=== PATIENT | male | born 1995 | race Caucasian/White ===

== ENCOUNTER 2019-04-13 13:55 | Emergency (ER) | payer OTHER ==
[2019-04-13 14:10] VITALS: BP 100/54
--- NOTE | 2019-04-13 14:12 | UC ---
Skin Complaint HPI - HPI Summary HPI Summary: 24 yo male presents with right cheek scratch. He tells me that 3 days ago he was camping and somehow sustained a small abrasion to his right cheek. Since that time has had increased pain, redness, and swelling to the area. He went to [facility] today and was prescribed keflex for this, but they instructed him to come here after leaving their clinic. He is unsure why he is supposed to come here. He denies vision changes, eye pain, fever, chills. States his tetanus is up to date. - History of Current Complaint Chief Complaint: UCSkin Time Seen by Provider: 04/13/19 14:11 Stated Complaint: EYE IRRRITATION Hx Obtained From: Patient Onset/Duration: Gradual Onset Onset Severity: Mild Current Severity: Mild Pain Intensity: 1 Pain Scale Used: 0-10 Numeric - Allergy/Home Medications Allergies/Adverse Reactions: Allergies Allergy/AdvReac Type Severity Reaction Status Date / Time No Known Allergies Allergy Verified 04/13/19 14:04 Home Medications: Home Medications Escitalopram Oxalate [Lexapro 10 mg] 15 mg PO DAILY 04/13/19 [History Confirmed 04/13/19] PMH/Surg Hx/FS Hx/Imm Hx Psychological History: Anxiety, Depression - Surgical History Surgical History: None - Family History Known Family History: Positive: Non-Contributory - Social History Occupation: Student Lives: Dormitory/Roommates Alcohol Use: Occasionally Substance Use Type: Cocaine, Marijuana Substance Use Comment - Amount & Last Used: ocassional Smoking Status (MU): Smoker, Current Status Unknown Type: eCigarettes Amount Used/How Often: 1 juul pod every 3-4 days Review of Systems All Other Systems Reviewed And Are Negative: No Constitutional: Positive: Negative Skin: Positive: Other - Abrasion right cheek Eyes: Positive: Negative ENT: Positive: Negative Respiratory: Positive: Negative Cardiovascular: Positive: Negative Neurovascular: Positive: Negative Neurological: Positive: Negative Psychological: Positive: Negative Physical Exam - Summary Physical Exam Summary: GENERAL: NAD. WDWN. No pain distress. SKIN: Right cheek: 1.0cm linear superficial abrasion with 1.5cm of surrounding mild erythema and edema. No drainage. EYES: No erythema or injection. No drainage. NECK: Supple. Nontender. No lymphadenopathy. CHEST: No accessory muscle use. Breathing comfortably and in no distress. CV: Pulses intact. Cap refill <2seconds NEURO: Alert. PSYCH: Age appropriate behavior. Triage Information Reviewed: Yes Vital Signs: Initial Vital Signs Temp 98.6 F 04/13/19 14:04 Pulse 74 04/13/19 14:04 Resp 16 04/13/19 14:04 BP 100/54 04/13/19 14:04 Pulse Ox 97 04/13/19 14:04 Vital Signs Reviewed: Yes Course/Dx - Course Course Of Treatment: Suspect cellulitis vs wound infection. He was prescribed keflex earlier today, but has not taken it. I am unsure why he was sent to our clinic as he is afebrile and this appears to be a non-complex cellulitis/wound infection. Pt is unsure and he called [facility] while in our clinic and was not able to get an answer from their staff. I advised him to take his keflex as prescribed and apply ice intermittently throughout the day to decrease pain and swelling. F/u with Dr. Delvalle if symptoms worsen - Diagnoses Provider Diagnosis: Wound infection Discharge ED - Sign-Out/Discharge Documenting (check all that apply): Patient Departure All imaging exams completed and their final reports reviewed: No Studies - Discharge Plan Condition: Stable Disposition: HOME Patient Education Materials: Wound Infection (ED), Cellulitis (ED) Referrals: No Primary Care Phys,NOPCP [Primary Care Provider] - Camilo Delvalle MD [Medical Doctor] - Additional Instructions: If you develop a fever, shortness of breath, chest pain, new or worsening symptoms - please call your PCP or go to the ED immediately. Please take your antibiotic as prescribed by [facility] Apply ice to the area intermittently throughout the day to decrease pain and swelling If the swelling gets worse or if you have trouble with your eye - please call the eye doctor Dr. Delvalle at the number below to schedule an appointment - Billing Disposition and Condition Condition: STABLE Disposition: Home
== END 2019-04-13 14:40 | disposition home or self-care (01) ==
LOC: UCEAST 13:55
DX: S00.81XA Abrasion of other part of head, initial encounter (principal); L08.9 Local infection of the skin and subcutaneous tissue, unspecified; X58.XXXA Exposure to other specified factors, initial encounter; Y92.833 Campsite as the place of occurrence of the external cause
CPT/HCPCS: 99201; G0463

== ENCOUNTER 2019-04-14 11:33 | Emergency (ER) | payer OTHER ==
[2019-04-14] MEDS ORDERED: Clindamycin 600 MG IVPREMIX(* 600 MG/50 ML SDV IV ONE (11:58)
[2019-04-14] MEDS ORDERED: NS 0.9% 1000 ML** 1,000 ML IV ONE (11:59)
--- NOTE | 2019-04-14 12:33 | ED ---
Throat Pain/Nasal Congestion - HPI Summary HPI Summary: 24 year old male presents with swelling below right eye for past couple days. He states he went camping a couple days ago and had a scratch under his eye. He states that noticed spreading redness to the area. He states has had increasing swelling. Denies any fevers or chills. He has been on Keflex for the past day. He states has been no improvement and redness has been getting worse. He denies any change in vision. No blurry vision. No pain with eye movement. - History of Current Complaint Chief Complaint: EDEyeProblem Time Seen by Provider: 04/14/19 11:51 - Allergies/Home Medications Allergies/Adverse Reactions: Allergies Allergy/AdvReac Type Severity Reaction Status Date / Time No Known Allergies Allergy Verified 04/14/19 11:41 PMH/Surg Hx/FS Hx/Imm Hx Endocrine/Hematology History: Denies: Hx Anticoagulant Therapy Respiratory History: Denies: Hx Asthma Infectious Disease History: No Infectious Disease History: Denies: Traveled Outside the [place] in Last 30 Days - Family History Known Family History: Positive: Non-Contributory - Social History Alcohol Use: Occasionally Substance Use Type: Reports: Cocaine, Marijuana Substance Use Comment - Amount & Last Used: ocassional Smoking Status (MU): Smoker, Current Status Unknown Type: eCigarettes Amount Used/How Often: 1 juul pod every 3-4 days Review of Systems Negative: Fever, Chills Negative: Chest Pain Negative: Shortness Of Breath Positive: Rash All Other Systems Reviewed And Are Negative: Yes Physical Exam Triage Information Reviewed: Yes Vital Signs On Initial Exam: Initial Vitals Temp Pulse Resp BP Pulse Ox 98.3 F 61 14 106/68 99 04/14/19 11:38 04/14/19 11:38 04/14/19 11:38 04/14/19 11:38 04/14/19 11:38 Vital Signs Reviewed: Yes Appearance: Positive: Well-Appearing Skin: Positive: Warm, Dry, Other - edema and erythema below right eye around a scratch with trace erythema above right eye Head/Face: Positive: Normal Head/Face Inspection Eyes: Positive: Normal, EOMI - with minimial pain, LA, Conjunctiva Clear ENT: Positive: Pharynx normal, TMs normal Neck: Positive: Supple, Nontender, No Lymphadenopathy Respiratory/Lung Sounds: Positive: Clear to Auscultation, Breath Sounds Present Cardiovascular: Positive: Normal, RRR Abdomen Description: Positive: Nontender, Soft Bowel Sounds: Positive: Present Musculoskeletal: Positive: Normal Neurological: Positive: Normal Psychiatric: Positive: Normal Diagnostics - Vital Signs Vital Signs Temp Pulse Resp BP Pulse Ox 04/14/19 11:38 98.3 F 61 14 106/68 99 - Laboratory Result Diagrams: 04/14/19 12:17 04/14/19 12:17 Lab Statement: Any lab studies that have been ordered have been reviewed, and results considered in the medical decision making process. - Radiology orbit Radiology Interpretation Completed By: Radiologist Summary of Radiographic Findings: IMPRESSION: Stranding of the medial preseptal soft tissues overlying the right orbit. No evidence orbital inflammation. EENT Course/Dx - Course Course Of Treatment: 24 year old male presents with swelling below right eye for past couple days. He states he went camping a couple days ago and had a scratch under his eye. He states that noticed spreading redness to the area. He states has had increasing swelling. Denies any fevers or chills. He has been on Keflex for the past day. He states has been no improvement and redness has been getting worse. He denies any change in vision. No blurry vision. No pain with eye movement. On exam has scratched lower eye. Has erythema and edema around eye. Extraocular movements intact. With symptoms geting progressively worse with a CT. wbc normal. CT shows preseptal stranding which represents with cellutitis. gave IV clindamycin. will have stop keflex and start clindmaycin and amoxicillin to cover preseptal cellulitis. gave referral to optho. patient understand and agrees with plan. - Differential Diagnoses Differential Diagnoses: Cellulitis, Periorbital/Orbital Cellulitis, Other - abscess - Diagnoses Provider Diagnoses: Facial cellulitis Discharge ED - Sign-Out/Discharge Documenting (check all that apply): Patient Departure Patient Received Moderate/Deep Sedation with Procedure: No - Discharge Plan Condition: Good Disposition: HOME Prescriptions: Amoxicillin/Clavulanate TAB* [Augmentin TAB 875*] 875 mg PO BID #19 tab Clindamycin Cap(NF) [Clindamycin Cap 300 mg Cap(NF)] 300 mg PO TID #29 cap Patient Education Materials: Periorbital Cellulitis in Adults (ED) Referrals: Camilo Delvalle MD [Medical Doctor] - Additional Instructions: stop keflex and start clindamycin three times a day for 10 days and augmentin twice a day for 10 days a referral was given to optholomology Follow up with kiran in two days for wound check Return to ED if develop fever, redness spreads or any new or worsening symptoms - Billing Disposition and Condition Condition: GOOD Disposition: Home
[2019-04-14 12:35] LABS: ABS Eosinophils 0.2 10^3/ul (0-0.6); ABS Lymphocytes 1.7 10^3/ul (1.0-4.8); ABS Monocytes 0.3 10^3/ul (0-0.8); ABS Neutrophils 2.1 10^3/ul (1.5-7.7); Eosinophil % 4.8 %; Hematocrit 43 % (42-52); Lymphocyte % 38.5 %; Mean Corpuscular HGB Conc 35 g/dL (31-36); Mean Corpuscular Hemoglobin 31 pg (27-31); Mean Corpuscular Volume 88 fL (80-94); Mean Platelet Volume 7.8 fL (7.4-10.4); Nucleated Red Blood Cells % 0.1; Platelet Count 266 10^3/uL (150-450); Red Blood Count 4.85 10^6 /uL (4.18-5.48); Red Cell Distribution Width 13 % (10-15); White Blood Count 4.3 10^3/uL (3.5-10.8)
[2019-04-14 12:48] LABS: ALT 14 U/L (7-52); AST 19 U/L (13-39); Albumin 4.6 g/dL (3.2-5.2); Albumin/Globulin Ratio 1.9 (1-3); Alkaline Phosphatase 59 U/L (34-104); Anion Gap 5 mmol/L (2-11); BUN/Creatinine Ratio 10.6 (8-20); Blood Urea Nitrogen 11 mg/dL (6-24); C Reactive Protein < 1.00 mg/L (<8.01); CO2 Carbon Dioxide 32 mmol/L (22-32); Calcium 9.7 mg/dL (8.6-10.3); Chloride 104 mmol/L (101-111); EGFR African American 108.1 (>60); EGFR Non-African American 89.3 (>60); Globulin 2.4 g/dL (2-4); Glucose 82 mg/dL (70-100); Sodium 141 mmol/L (135-145)
[2019-04-14] MEDS ORDERED: Iohexol 300* (CONTRAST) 10 ML SDV IV ONE (12:59)
[2019-04-14] MEDS ORDERED: Ketorolac INJ* 30 MG/ML 1 ML VIAL IV PUSH ONE (13:04)
[2019-04-14] MEDS ORDERED: Amoxicillin/Clavulanate TAB* 875 MG PO ONE (13:47)
[2019-04-14 15:05] VITALS: BP 149/87
== END 2019-04-14 15:04 | disposition home or self-care (01) ==
LOC: ED 11:33
DX: L03.211 Cellulitis of face (principal); F17.290 Nicotine dependence, other tobacco product, uncomplicated; Z79.899 Other long term (current) drug therapy
CPT/HCPCS: 36415; 70481; 80053; 83605; 85025; 86140; 87040; 96361; 96374; 96375; 99283; A9270-GY; J1885; Q9967